=== PATIENT | male | born 1965 | race Asian ===

== ENCOUNTER 2023-10-30 16:54 | Emergency (ER) | payer OTHER, SELFPAY ==
[2023-10-30 17:20] VITALS: BP 175/109; PULSE 107; RESP 18; TEMP 37.2; O2SAT 97; BMI 16.3
--- NOTE | 2023-10-30 17:21 | XR_ITS ---
Patient: YAMILA ZULETA Facility:?[facility] Patient ID:?[id number] Site Patient ID:?[id number]. Site :?[id number] Study:?XRay-Extremity Right HAND 3V-10/30/2023 5:34:32 PM Ordering Physician:ELIZABETH Final Report: Indication: Finger amputated Technique: Three views of the right hand Comparison: None Findings/impression : No acute fracture or malalignment. Amputation of the right 5th digit at the level of the distal interphalangeal joint. No radiopaque foreign bodies or subcutaneous emphysema. No osteoarthritic degenerative changes. No suspicious osseous lesions. Dictated by Higinio Winslow MD @ 10/30/2023 6:02:11 PM Signed by:?Higinio Winslow MD @10/30/2023 6:02:11 PM (Electronic Signature)
--- NOTE | 2023-10-30 17:37 | ED.GENADULT ---
HPI - General Adult General Date Seen: 10/30/23 Chief complaint: Laceration/Wound Stated complaint: R finger amputated Time Seen by Provider: 10/30/23 17:09 History of Present Illness HPI narrative: This is a pleasant generally healthy 58-year-old male presenting to the ER today with an acute injury to his right hand. 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 He was trying to reset a machine in the [employer] when he accidentally got his right hand caught in the machine and injured his 4th and 5th digits. He suffered a laceration across the dorsum of the 5th digit that involves the D IP joint and has injured his extensor tendon. He is not able to extend his D IP. He is able to extend his PIP and MCP. Flexor tendons are intact, according to him. He also amputated part of his 5th digit. He thinks that he probably amputated at the PIP joint and the distal and middle phalanges are stuck in the machine. His friends are trying to retrieve them now to bring them in. He is otherwise healthy. No history of diabetes or immunosuppression. Last tetanus was 4 years ago in 2019. Related Data Home Medications Medication Instructions Recorded Confirmed amlodipine 10 mg tablet 10 mg PO QDAY 02/20/22 02/20/22 Allergies Allergy/AdvReac Type Severity Reaction Status Date / Time omeprazole [From Prilosec] Allergy Unknown Hives Verified 02/20/22 10:16 [facility] Medical History (Updated 10/30/23 @ 18:01 by Guillermo Larson MD) Coronary artery disease ?I25.10 - Atherosclerotic heart disease of resighini coronary artery without angina pectoris (ICD-10) Hypertension ?I10 - Essential (primary) hypertension (ICD-10) Surgical History (Updated 02/20/22 @ 10:17 by Darlin Richards ~ [facility]) Inguinal hernia ?K40.90 - Unilateral inguinal hernia, without obstruction or gangrene, not specified as recurrent (ICD-10) Family History (Updated 02/20/22 @ 10:20 by Darlin Richards ~ [facility]) Mother High blood pressure Osteoarthritis Diabetes Father Osteoarthritis Prostate cancer Diabetes High blood pressure Social History (Updated 02/20/22 @ 10:30 by Darlin Richards ~ [facility], [facility]) Smoking Status: Never smoker Do you use any of these nicotine containing products: None Second hand tobacco smoke exposure: No Are you now , , , , never or living with a partner: Social isolation score (0-1 are the most socially isolated patients): 1 Exam Narrative: Exam Narrative: Constitutional: Appears well-developed and well-nourished. Alert. Conversant and polite despite his injuries. Non toxic. HENT: Head: Atraumatic. Nose: Nose normal. Mouth/Throat: Oral mucosa is clear and moist. no trismus. Eyes: Conjunctivae normal. EOM normal. Pupils equal, round, and reactive to light. No scleral icterus. Neck: Normal range of motion. Neck supple. No tracheal deviation present. Cardiovascular: Normal rate, regular rhythm. Symmetric radial artery pulses . Small amount of anus oozing from the laceration on the dorsum of his 4th digit. Tiny amount of venous oozing from the 5th digit. No active bleeding. No signs of arterial bleeding. Pulmonary/Chest: Effort normal. No stridor. No respiratory distress. Abdominal: Soft. Nontender Musculoskeletal: RUE: Normal range of motion in shoulder, elbow, wrist. On injured other than hand. Hand: Thumb, 2nd digit, 3rd digit are on injured. The patient has a 1.5-2 cm laceration across the dorsum of the 4th digit which appears to involve the open D IP joint. He does have an injury to the extensor tendon is not able to extend the D IP joint. PIP and MCP joints appear to be intact. The patient has an amputation of the distal portion of the 5th digit. He has exposed bone of the middle phalanges. The distal phalange E and finger nail and the distal finger are absent. Intact MCP, PIP. Subsequently his friends arrived with his amputated finger on ice. We evaluated. It does appear to be somewhat macerated skin but there is a flap of skin that would probably correlate with the exposed bone on his distal finger. We wrapped the finger in stairs saline soaked sterile gauze. We put this inside a watertight container and placed on ice to keep the finger cold. LUE: Normal range of motion. No tenderness. No deformity RLE: Normal range of motion. No edema. No tenderness. No deformity LLE: Normal range of motion. No edema. No tenderness. No deformity Neurological: Alert and oriented to person, place, and time. Normal strength. CN II-VII intact. No sensory deficit. GCS eye subscore is 4. GCS verbal subscore is 5. GCS motor subscore is 6. Normal coordination Skin: Skin is warm and dry. No rash noted. No pallor. Normal capillary refill. Psychiatric: Normal mood. Normal affect. Const: Vital Signs, click to edit/add: Vital Signs - 24 hr 10/30/23 17:20 Temperature 99 F Pulse Rate [Pulse Oximeter] 107 H Respiratory Rate 18 Blood Pressure [Le ft Upper Arm] 175/109 H Pulse Oximetry 97 Oxygen Delivery Me thod Room Air Course Vital Signs Vital signs: Initial Vital Signs Temperature 99 F 10/30/23 17:20 Temperature Source Temporal Artery Scan 10/30/23 17:20 Pulse Rate 107 H 10/30/23 17:20 Respiratory Rate 18 10/30/23 17:20 Blood Pressure 175/109 H 10/30/23 17:20 Blood Pressure Mean 131 H 10/30/23 17:20 Pulse Oximetry 97 10/30/23 17:20 Oxygen Delivery Method Room Air 10/30/23 17:20 Vital Signs Temperature 99 F 10/30/23 17:20 Pulse Rate 107 H 10/30/23 17:20 Respiratory Rate 18 10/30/23 17:20 Blood Pressure 175/109 H 10/30/23 17:20 Pulse Oximetry 97 10/30/23 17:20 Oxygen Delivery Method Room Air 10/30/23 17:20 Temperature 99 F 10/30/23 17:20 Pulse Rate 107 H 10/30/23 17:20 Respiratory Rate 18 10/30/23 17:20 Blood Pressure 175/109 H 10/30/23 17:20 Pulse Oximetry 97 10/30/23 17:20 Oxygen Delivery Method Room Air 10/30/23 17:20 Medications Administered Medications: Discontinued Medications Generic Name Dose Route Start Last Admin Trade Name Freq PRN Reason Stop Dose Admin Cefazolin Sodium 1 gm/ Sodium 100 mls @ 200 mls/hr 10/30/23 17:59 10/30/23 18:17 Chloride IVPB 10/30/23 18:00 Infused ONCE ONE Infusion Medical Decision Making MDM Narrative Medical decision making narrative: Very pleasant generally healthy 58-year-old male presenting to the ER today with injuries to his right hand 4th and 5th digits that he suffered while getting them caught in a bowling pin setting machine just prior to arrival today. He does have a complex open wound on the dorsum of his 4th digit that I believe extends into the D IP joint space and creates a laceration to the extensor tendon. Will need repair by Orthopedics. He also has an amputation of his 5th digit distal phalanx and degloving of the middle phalanx with exposed bone and exposed articular surface of the middle phalanx. Will likely need either replantation of the distal fragment. Brought here to the ER. Wrapped in sterile saline soaked gauze and placed in a dry container on ice to keep cool. Will need referral to a hand surgeon for further evaluation to consider whether not replantation would be a viable alternative. Patient requests [facility]. Discussed with Dr. Diaz at [facility] [facility]. He graciously accepts this patient to go directly to the ER at [facility] where he can be seen by hand/plastic surgeries. Tetanus is up-to-date. Prophylactic antibiotics with Ancef 1 g IV Digital block was performed to the 4th and 5th digits on the right hand with bupivacaine at about 5:15 p.m. here in the ER in [place]. Orthopedic surgery from [place] was consulted and does recommend transfer. Discharge Plan Discharge Clinical Impression: Traumatic amputation of finger, Finger laceration, Extensor tendon laceration, finger, open wound Patient Disposition: Xfer [place] Additional Instructions: Please go directly to the emergency department of [facility], [facility], [place], [place]. [address] [place] [address], [id number] You can check in through the ER and he will be seen by the hand surgery/plastic surgery team. Do not eat or drink until you are seen in the ER at [facility]. You received bupivacaine 0.25% numbing medicine into your fingers at 5:15 p.m. You can anticipate your fingers will probably have residual numbness for 4-8 hours. Prescriptions: No Action amlodipine 10 mg tablet 10 mg PO QDAY Stand Alone Forms: My[employer] Info Instructions
[2023-10-30] MEDS: CEFAZOLIN 1 GM in 0.9 % SODIUM CHLORIDE Mini-bag 100 ML IVPB (18:02)
--- NOTE | 2023-10-30 18:16 | ED.NURSE ---
Pt left with via private vehicle for transfer to [facility] in [place].
== END 2023-10-30 18:18 | disposition short-term general hospital (02) ==
PROVIDERS: Emergency Provider Emergency Medicine; PCP Family Medicine
DX: S68.126A Partial traumatic metacarpophalangeal amputation of right little finger, initial encounter (principal); W31.89XA Contact with other specified machinery, initial encounter; S66.324A Laceration of extensor muscle, fascia and tendon of right ring finger at wrist and hand level, initial encounter
CPT/HCPCS: 64400; 73130; 96365; 99284; 99285; J0690